=== PATIENT | female | born 1985 | race Caucasian/White ===

== ENCOUNTER 2017-02-03 19:00 | Emergency (ER) | payer SELFPAY ==
[~2017-02-03] VITALS: Ht 182.9 cm; Wt 46.3 kg
[~2017-02-03 19:00] MED LIST: BC PILL PO; HYDR1CAP2 PO; HYDR1TAB66 PO; MDR10T PO; ONDAN4ODT PO; ORTHOTRICYCLINE PO; PNT40TEC PO; [UNRECOGNIZED DRUG - OTHER]
--- OUTSIDE RECORDS SUMMARY | 2017-02-03 19:06 | XMS REPORT | Continuity of Care Document ---
Author Author [facility] Organization [facility] Address Unknown Phone Unavailable Allergies Active Description Code Type Severity Reaction Onset Reported/Identified Relationship to Patient Clinical Status Yes codeine Drug Allergy N/A N/A 11/14/2009 Yes Percocet Drug Allergy N/A N/A 11/14/2009 Yes Vicodin Drug Allergy N/A N/A 11/14/2009 Yes ranitidine Drug Allergy N/A N/A 11/18/2009 Yes Penicillins Drug Allergy N/A N/A 11/25/2009 Medications Problems Date Dx Coded Attending Type Code Diagnosis Diagnosed By 11/14/2009 789.00 ABDOMINAL PAIN UNSPECIFIED SITE 11/14/2009 DECLAN SELLERS APRN 789.00 ABDOMINAL PAIN UNSPECIFIED SITE 11/14/2009 YANDY SUTTON DO 789.00 ABDOMINAL PAIN UNSPECIFIED SITE 11/25/2009 620.2 OTHER AND UNSPECIFIED OVARIAN CYST 11/25/2009 625.9 UNSPECIFIED SYMPTOM ASSOCIATED WITH FEMALE GENITAL ORGANS 11/25/2009 626.2 EXCESSIVE OR FREQUENT MENSTRUATION 11/25/2009 DECLAN SELLERS APRN R 620.2 OTHER AND UNSPECIFIED OVARIAN CYST 11/25/2009 DECLAN SELLERS APRN R 625.9 UNSPECIFIED SYMPTOM ASSOCIATED WITH FEMALE GENITAL ORGANS 11/25/2009 DECLAN SELLERS APRN R 626.2 EXCESSIVE OR FREQUENT MENSTRUATION 11/25/2009 YANDY SUTTON DO 620.2 OTHER AND UNSPECIFIED OVARIAN CYST 11/25/2009 YANDY SUTTON DO K 625.9 UNSPECIFIED SYMPTOM ASSOCIATED WITH FEMALE GENITAL ORGANS 11/25/2009 YANDY SUTTON DO 626.2 EXCESSIVE OR FREQUENT MENSTRUATION 12/09/2009 V72.31 NAIL MAKING MACHINE TENDER EXAM, ROUTINE 12/09/2009 DECLAN SELLERS APRN 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 MAKING MACHINE TENDER EXAM, ROUTINE 12/09/2009 YANDY SUTTON DO V72.31 NAIL MAKING MACHINE TENDER EXAM, ROUTINE 03/12/2011 379.93 REDNESS OR DISCHARGE OF EYE 03/12/2011 DECLAN SELLERS APRN R 379.93 REDNESS OR DISCHARGE OF EYE 03/12/2011 YANDY SUTTON DO K 379.93 REDNESS OR DISCHARGE OF EYE 06/01/2011 789.06 ABDOMINAL PAIN EPIGASTRIC 06/01/2011 DECLAN SELLERS APRN R 789.06 ABDOMINAL PAIN EPIGASTRIC 06/01/2011 YANDY SUTTON DO K 789.06 ABDOMINAL PAIN EPIGASTRIC 06/12/2011 271.3 INTESTINAL DISACCHARIDASE DEFICIENCIES AND DISACCHARIDE MALABSORPTION 06/12/2011 558.9 OTHER AND UNSPECIFIED NONINFECTIOUS GASTROENTERITIS AND COLITIS 06/12/2011 DECLAN SELLERS APRN R 271.3 INTESTINAL DISACCHARIDASE DEFICIENCIES AND DISACCHARIDE MALABSORPTION 06/12/2011 DECLAN SELLERS APRN R 558.9 OTHER AND UNSPECIFIED NONINFECTIOUS GASTROENTERITIS AND COLITIS 06/12/2011 YANDY SUTTON DO K 271.3 INTESTINAL DISACCHARIDASE DEFICIENCIES AND DISACCHARIDE MALABSORPTION 06/12/2011 YANDY SUTTON DO 558.9 OTHER AND UNSPECIFIED NONINFECTIOUS GASTROENTERITIS AND COLITIS 08/24/2012 263.9 UNSPECIFIED PROTEIN-CALORIE MALNUTRITION 08/24/2012 530.81 GERD 08/24/2012 DECLAN SELLERS APRN R 263.9 UNSPECIFIED PROTEIN-CALORIE MALNUTRITION 08/24/2012 DECLAN SELLERS APRN R 530.81 GERD 08/24/2012 YANDY SUTTON DO K 263.9 UNSPECIFIED PROTEIN-CALORIE MALNUTRITION 08/24/2012 YANDY SUTTON DO K 530.81 GERD 09/26/2012 DECLAN SELLERS APRN R 783.21 LOSS OF WEIGHT 09/26/2012 YANDY SUTTON DO K 783.21 LOSS OF WEIGHT 03/09/2013 DECLAN SELLERS APRN R 305.1 TOBACCO ABUSE 03/09/2013 DECLAN SELLERS APRN R 786.2 COUGH 03/09/2013 YANDY SUTTON DO K 305.1 TOBACCO ABUSE 03/09/2013 YANDY SUTTON DO K 786.2 COUGH 03/27/2013 YANDY SUTTON DO 491.20 OBSTRUCTIVE CHRONIC BRONCHITIS WITHOUT EXACERBATION 03/27/2013 YANDY SUTTON DO 491.21 OBSTRUCTIVE CHRONIC BRONCHITIS WITH (ACUTE) EXACERBATION 03/27/2013 YANDY SUTTON DO V65.42 COUNSELING - SMOKING CESSATION Procedures Code [place] [address] HIDA SCAN 2012 Jorge Luis Hammonds 08/27/2012 Results Encounters ACCT No. Visit Date/Time Discharge Status Pt. Type Provider Facility Loc./Unit Complaint [id number] 09/15/2012 09:03:00 2012 23:59:59 CLS Outpatient [id number] 09/06/2012 09:57:00 2012 23:59:59 CLS Outpatient [id number] 03/27/2013 13:06:00 03/27/2013 23: 59:59 CLS Outpatient YANDY SUTTON DO [id number] 03/09/2013 12:31:00 03/09/2013 23: 59:59 CLS Outpatient DECLAN SELLERS APRN [id number] 08/24/2012 16:01:00 Document Registration
[2017-02-03 19:21] LABS: BASOPHILS # (AUTO) 0.1 10^3/uL (0.0-0.1); BASOPHILS % (AUTO) 0 % (0-10); EOSINOPHILS # (AUTO) 0.2 10^3/uL (0.0-0.3); EOSINOPHILS % (AUTO) 1 % (0-10); LYMPHOCYTES # (AUTO) 3.3 X 10^3 (1.0-4.0); LYMPHOCYTES % (AUTO) 13 % (12-44); MEAN CORPUSCULAR HEMOGLOBIN 33 PG (25-34); MEAN CORPUSCULAR HGB CONC 34 G/DL (32-36); MEAN CORPUSCULAR VOLUME 98 FL (80-99); MEAN PLATELET VOLUME 10.2 FL (7.4-10.4); MONOCYTES # (AUTO) 1.6 X 10^3 (0.0-1.0); MONOCYTES % (AUTO) 6 % (0-12); NEUTROPHILS # (AUTO) 19.7 X 10^3 (1.8-7.8); NEUTROPHILS % (AUTO) 79 % (42-75); PLATELET COUNT 460 10^3/uL (130-400); RED CELL DISTRIBUTION WIDTH 12.4 % (10.0-14.5); WHITE BLOOD COUNT 24.9 10^3/uL (4.3-11.0)
--- NOTE | 2017-02-03 19:32 | Diagnostic Imaging Report ---
EXAMINATION: PA and lateral chest at 0737 PM INDICATION: Cough and shortness of breath The heart size is within normal limits and stable when compared to 05/30/2011. The lungs are generally clear. There is no evidence for pneumonia or for a pleural effusion. The perihilar markings are somewhat prominent but no different than on the prior exam. The mediastinum is not widened. The osseous structures are intact. IMPRESSION: There is no evidence for an acute cardiopulmonary abnormality. Dictated by: Dictated on workstation # [id number]
[2017-02-03] MEDS ORDERED: RT-ALBUINH IH (19:33)
[2017-02-03 19:37] LABS: BAND NEUTROPHILS 9 %; BASOPHILS % (MANUAL) 0 %; EOSINOPHILS % (MANUAL) 1 %; LYMPHOCYTES % (MANUAL) 50 %; NEUTROPHILS % (MANUAL) 66 %
[2017-02-03 19:40] LABS: ALANINE AMINOTRANSFERASE 9 U/L (0-55); ALBUMIN 4.5 GM/DL (3.2-4.5); ANION GAP 13 MMOL/L (5-14); ASPARTATE AMINO TRANSFERASE 17 U/L (5-34); BILIRUBIN,TOTAL 0.5 MG/DL (0.1-1.0); BLOOD UREA NITROGEN 5 MG/DL (7-18); CALCIUM 10.2 MG/DL (8.5-10.1); CARBON DIOXIDE 23 MMOL/L (21-32); CHLORIDE 102 MMOL/L (98-107); GLUCOSE 89 MG/DL (70-105); SODIUM 138 MMOL/L (135-145); TOTAL PROTEIN 8.1 GM/DL (6.4-8.2); hs C REACTIVE PROTEIN 3.24 MG/DL (0.00-0.50)
--- NOTE | 2017-02-03 19:52 | ED Cough/URI ---
General Chief Complaint: Cough/Cold/Flu Symptoms Stated Complaint: FLU LIKE SYMPTOMS Nursing Triage Note: PATIENT BEGAN EXPERIENCING COLD LIKE SYMPTOMS A WEEK AGO. SYMPTOMS HAVE INCREASED AND SHE HAS BEGUN TO COUGH AND BE SOA WITH RIB PAIN. PATIENT DENIES HAVING A FEVER. History of Present Illness Time seen by provider: 19:05 Initial Comments 31-year-old female, arrives via EMS for cough and flulike symptoms for one week. She reports rib pain, from coughing. She is on albuterol for asthma, she's been using it 2 puffs every 4 hours. She had Tylenol approximately one hour prior to arriving to the emergency department. Timing/Duration: getting worse Severity/Quality: productive cough (minimal yellow phlegm) Prior Episodes/Possible Cause: no prior episodes Associated Symptoms: cough, nasal congestion Allergies and Home Medications Allergies Coded Allergies: acetaminophen (Unverified Allergy, Unknown, 02/03/17) hydrocodone (Unverified Allergy, Unknown, 02/03/17) oxycodone (Unverified Allergy, Unknown, 02/03/17) Home Medications Albuterol Sulfate 1 Puff Puff, 2 PUFF IH Q2H, (Reported) 1 PUFF = 90 MCG Amoxicillin/Potassium Clav 1 Each Tablet, 1 EACH PO BID, #14 Ref 0 Prescribed by: SAULO GORMAN on 02/03/172101 Constitutional: no symptoms reported, see HPI EENTM: see HPI, nose congestion Respiratory: see HPI, cough Gastrointestinal: no symptoms reported, see HPI All Other Systems Reviewed Negative Unless Noted: Yes Past Xgfuone-Gafbkd-Bcecft Hx Patient Social History Alcohol Use: Denies Use Recreational Drug Use: No Smoking Status: Current Everyday Smoker Type Used: Cigarettes Recent Foreign Travel: No Contact w/Someone Who Travel: No Recent Infectious Disease Expo: No Recent Hopitalizations: No Physical Abuse: No Sexual Abuse: No Mistreated: No Fear: No Seasonal Allergies Seasonal Allergies: Yes Surgeries History of Surgeries: Yes Surgeries: Hysterectomy Respiratory History of Respiratory Disorde: Yes Respiratory Disorders: Asthma Cardiovascular History of Cardiac Disorders: No Neurological History of Neurological Disord: No Reproductive System : No Hx Reproductive Disorders: Yes (ENDOMETRIOSIS/OVARIAN CYST) Sexually Transmitted Disease: No LIFE SCIENTISTS History: Hysterectomy Genitourinary History of Genitourinary Disor: No Gastrointestinal History of Gastrointestinal Di: No Musculoskeletal History of Musculoskeletal Dis: No Endocrine History of Endocrine Disorders: No HEENT History of HEENT Disorders: No Cancer History of Cancer: No Psychosocial History of Psychiatric Problem: No Suicide Risk Score: 0 Integumentary History of Skin or Integumenta: No Blood Transfusions History of Blood Disorders: No Reviewed Nursing Assessment Reviewed/Agree w Nursing PMH: Yes Physical Exam Vital Signs Vital Sign - Last 12Hours 02/03/17 19:10 Temp 98.1 Pulse 81 Resp 20 B/P (MAP) 126/81 (96) Pulse Ox 100 O2 Delivery Room Air Capillary Refill : Less Than 3 Seconds General Appearance: WD/WN, no apparent distress Eyes: Bilateral Eye Normal Inspection, Bilateral Eye PERRL, Bilateral Eye EOMI HEENT: normal ENT inspection, TMs normal, pharynx normal, other (trace frontal sinus tenderness) Neck: non-tender, full range of motion, supple, No lymphadenopathy (R), No lymphadenopathy (L) Respiratory: chest non-tender, lungs clear, normal breath sounds, no respiratory distress, no accessory muscle use, other (CVAT with deep breaths and coughing.) Cardiovascular: normal peripheral pulses, regular rate, rhythm, no murmur Gastrointestinal: normal bowel sounds, non tender, soft Neurologic/Psychiatric: no motor/sensory deficits, alert, normal mood/affect, oriented x 3 Skin: normal color, warm/dry, No rash, other (skin turgor and capillary refill less than 2 seconds) Progress/Results/Core Measures Suspected Sepsis Recent Fever Within 48 Hours: No Infection Criteria Present: Suspected New Infection New/Unexplained Altered Menta: No Sepsis Screen: No Definite Risk Sepsis Diagnosis: SIRS Temperature:98.1 Pulse: 81 Respiratory Rate: 20 Laboratory Tests 02/03/17 19:05: White Blood Count 24.9H Blood Pressure 126 /81 Mean: 96 Laboratory Tests 02/03/17 19:05: Creatinine 0.68, Platelet Count 460H, Total Bilirubin 0.5 Results/Orders Lab Results Laboratory Tests Test 02/03/17 19:05 02/03/17 19:56 Range/Units White Blood Count 24.9 H 4.3-11.0 10^3/uL Red Blood Count 4.60 4.35-5.85 10^6/uL Hemoglobin 15.2 11.5-16.0 G/DL Hematocrit 45 35-52 % Mean Corpuscular Volume 98 80-99 FL Mean Corpuscular Hemoglobin 33 25-34 PG Mean Corpuscular Hemoglobin Concent 34 32-36 G/DL Red Cell Distribution Width 12.4 10.0-14.5 % Platelet Count 460 H 130-400 10^3/uL Mean Platelet Volume 10.2 7.4-10.4 FL Neutrophils (%) (Auto) 79 H 42-75 % Lymphocytes (%) (Auto) 13 12-44 % Monocytes (%) (Auto) 6 0-12 % Eosinophils (%) (Auto) 1 0-10 % Basophils (%) (Auto) 0 0-10 % Neutrophils # (Auto) 19.7 H 1.8-7.8 X 10^3 Lymphocytes # (Auto) 3.3 1.0-4.0 X 10^3 Monocytes # (Auto) 1.6 H 0.0-1.0 X 10^3 Eosinophils # (Auto) 0.2 0.0-0.3 10^3/uL Basophils # (Auto) 0.1 0.0-0.1 10^3/uL Neutrophils % (Manual) 66 % Lymphocytes % (Manual) 50 % Monocytes % (Manual) 4 % Eosinophils % (Manual) 1 % Basophils % (Manual) 0 % Band Neutrophils 9 % Blood Morphology Comment NORMAL Sodium Level 138 135-145 MMOL/L Potassium Level 4.0 3.6-5.0 MMOL/L Chloride Level 102 98-107 MMOL/L Carbon Dioxide Level 23 21-32 MMOL/L Anion Gap 13 5-14 MMOL/L Blood Urea Nitrogen 5 L 7-18 MG/DL Creatinine 0.68 0.60-1.30 MG/DL Estimat Glomerular Filtration Rate > 60 BUN/Creatinine Ratio 7 Glucose Level 89 70-105 MG/DL Calcium Level 10.2 H 8.5-10.1 MG/DL Total Bilirubin 0.5 0.1-1.0 MG/DL Aspartate Amino Transf (AST/SGOT) 17 5-34 U/L Alanine Aminotransferase (ALT/SGPT) 9 0-55 U/L Alkaline Phosphatase 105 40-136 U/L C-Reactive Protein High Sensitivity 3.24 H 0.00-0.50 MG/DL Total Protein 8.1 6.4-8.2 GM/DL Albumin 4.5 3.2-4.5 GM/DL Urine Color YELLOW Urine Clarity CLEAR Urine pH 5 5-9 Urine Specific [place] 1.015 L 1.016-1.022 Urine Protein NEGATIVE NEGATIVE Urine Glucose (UA) NEGATIVE NEGATIVE Urine Ketones 1+ H NEGATIVE Urine Nitrite NEGATIVE NEGATIVE Urine Bilirubin NEGATIVE NEGATIVE Urine Urobilinogen NORMAL NORMAL MG/DL Urine Leukocyte Esterase NEGATIVE NEGATIVE Urine RBC (Auto) NEGATIVE NEGATIVE Urine RBC NONE /HPF Urine WBC RARE /HPF Urine Squamous Epithelial Cells 2-5 /HPF Urine Crystals NONE /LPF Urine Bacteria FEW H /HPF Urine Casts NONE /LPF Urine Mucus SMALL H /LPF Urine Culture Indicated NO Micro Results Microbiology 02/03/17 Influenza Types A,B Antigen (FLIP) - Final, Complete My Orders Orders - SAULO GORMAN Cbc With Automated Diff (02/03/17 19:11) Comprehensive Metabolic Panel (02/03/17 19:11) Hs C Reactive Protein (02/03/17 19:11) Influenza A And B Antigens (02/03/17 19:11) Chest Pa/Lat (2 View) (02/03/17 19:11) Manual Differential (02/03/17 19:05) Ua Culture If Indicated (02/03/17 19:53) Sputum Culture (02/03/17 19:56) Guaifenesin Tablet (Mucinex Tablet) (02/03/17 20:45) Amoxicillin/Clavulanate Tablet (Augmenti (02/03/17 20:38) Medications Given in ED Current Medications Medications Dose Ordered Sig/Liberty Route Start Time Stop Time Status Last Admin Dose Admin Guaifenesin 600 mg ONCE ONCE PO 02/03/17 20:45 02/03/17 20:46 DC 02/03/17 20:45 600 MG Vital Signs/I&O Vital Sign - Last 12Hours 02/03/17 02/03/17 19:10 21:23 Temp 98.1 98.1 Pulse 81 86 Resp 20 20 B/P (MAP) 126/81 (96) Pulse Ox 100 98 O2 Delivery Room Air Room Air Capillary Refill : Less Than 3 Seconds Blood Pressure Mean: 96 Progress Note : Time: 19:05 Progress Note Initial evaluation completed, recommended influenza swab, chest x-ray, CBC, sputum culture, UA, CMP. Normal saline 1 L infusing per IV. 1944 white blood cell count 24.9, chest x-ray negative for acute processes. Maintained her labs within normal limits. Mucinex 600 mg and Augmentin 875 mg orally. 2030 discharge planning reviewed with the patient, return precautions discussed. All questions answered. Diagnostic Imaging Diagonstic Imaging: Xray Plain Films/CT/US/NM/MRI: chest Comments NAME: [facility] REC#: [id number] PT STATUS: REG ER : 1985 PHYSICIAN: SAULO GORMAN ADMIT DATE: 02/03/17/ER Signed Date of Exam: 02/03/17 CHEST PA/LAT (2 VIEW) EXAMINATION: PA and lateral chest at 0737 PM INDICATION: Cough and shortness of breath The heart size is within normal limits and stable when compared to 05/30/2011. The lungs are generally clear. There is no evidence for pneumonia or for a pleural effusion. The perihilar markings are somewhat prominent but no different than on the prior exam. The mediastinum is not widened. The osseous structures are intact. IMPRESSION: There is no evidence for an acute cardiopulmonary abnormality. Dictated by: Dictated on workstation # [id number] Dict: 02/03/171926 Trans: 02/03/171931 Interpreted by: KWAME SHAIKH MD Electronically signed by: KWAME SHAIKH MD 02/03/171931 Reviewed: Reviewed by Me Departure Impression Impression: Primary Impression: Cough Additional Impressions: Upper respiratory infection Qualified Codes: J06.9 - Acute upper respiratory infection, unspecified Pleurisy Disposition: 01 HOME, SELF-CARE Condition: Improved Departure-Patient Inst. Decision time for Depature: 20:30 Referrals: SANDRA SMALL (PCP) Primary Care Physician Patient Instructions: Cough, Adult (DC), Acute Bronchitis, Adult (DC) Add. Discharge Instructions: Increase water intake, 16 oz bottle every 2 hours while awake. Muccinex 1 tablet twice daily with full glass of water. Take Medication as Prescribed: Augmentin. Continue to use your Albuterol inhaler 2 puffs every 4 hours. Follow-up with your primary care provider in 2-3 days if symptoms are not improving. You may take Tylenol 625 mg alternating with ibuprofen 600 mg every 4 hours for pain or fever. Running coolmist vaporizer in her room and sleeping. Return to emergency department for shortness of breath, difficulty breathing, fever greater than 101 not relieved with Tylenol or ibuprofen, or new problems. All discharge instructions reviewed with patient and/or family. Voiced understanding. Scripts Amoxicillin/Potassium Clav (Augmentin 875-125 Tablet) 1 Each Tablet 1 EACH PO BID, #14 TAB 0 Refills Prov: SAULO GORMAN 02/03/17 SAULO GORMAN Feb 03, 2017 19:52
[2017-02-03 20:06] LABS: BILIRUBIN,URINE NEGATIVE (NEGATIVE); KETONES,URINE 1+ (NEGATIVE); LEUKOCYTE ESTERASE ,URINE NEGATIVE (NEGATIVE); NITRITE,URINE NEGATIVE (NEGATIVE); PH,URINE 5 (5-9); PROTEIN,URINE NEGATIVE (NEGATIVE); UROBILINOGEN,URINE NORMAL (NORMAL)
[2017-02-03 20:15] LABS: WBC,URINE RARE /HPF
[2017-02-03 20:20] LABS: BUN/CREATININE RATIO 7; CREATININE SERUM 0.68 MG/DL (0.60-1.30); GFR ESTIMATED > 60
[2017-02-03] MEDS ORDERED: AUGMENTIN 875 MG TAB (AMOXICILLIN/CLAVULANATE) PO STA (20:38)
[2017-02-03] MEDS ORDERED: guaiFENesin (MUCINEX) 600 MG TAB PO ONE (20:45)
[2017-02-03] MEDS ORDERED: AMOX-358 PO (21:02)
[2017-02-03 21:23] VITALS: BP 110/70
== END 2017-02-03 21:23 | disposition home or self-care (01) ==
LOC: EDUNIT# 19:00 → ER 19:02
DX: J06.9 Acute upper respiratory infection, unspecified (principal); R07.81 Pleurodynia; J45.909 Unspecified asthma, uncomplicated; F17.210 Nicotine dependence, cigarettes, uncomplicated; Z90.710 Acquired absence of both cervix and uterus
CPT/HCPCS: 36415; 71020; 80053; 81000; 85007; 85027; 86141; 87070; 87077; 87205; 87804; 99283

== ENCOUNTER 2022-04-11 00:54 | Emergency (ER) | payer SELFPAY ==
[~2022-04-11] VITALS: Ht 182.9 cm; Wt 45.8 kg
[~2022-04-11 00:54] MED LIST changes: +ALBU8.5H6 IH; +AMOX-358 PO
[2022-04-11 01:03] VITALS: BP 152/90
[2022-04-11 01:25] LABS: BILIRUBIN,URINE NEGATIVE (NEGATIVE); CLARITY,URINE CLEAR; COLOR,URINE YELLOW; GLUCOSE, URINE (UA) NEGATIVE (NEGATIVE); KETONES,URINE NEGATIVE (NEGATIVE); LEUKOCYTE ESTERASE ,URINE NEGATIVE (NEGATIVE); NITRITE,URINE NEGATIVE (NEGATIVE); PH,URINE 5.5 (5-9); PROTEIN,URINE NEGATIVE (NEGATIVE)
[2022-04-11 01:32] LABS: BACTERIA,URINE NEGATIVE /HPF
[2022-04-11 01:39] LABS: AMPHETAMINE SCREEN, URINE NEGATIVE (NEGATIVE); BARBITURATE SCREEN URINE NEGATIVE (NEGATIVE); BENZODIAZEPINES SCREEN URINE NEGATIVE (NEGATIVE); CANNABINOID SCREEN, URINE NEGATIVE (NEGATIVE); COCAINE SCREEN URINE NEGATIVE (NEGATIVE); METHADONE STAT NEGATIVE (NEGATIVE); OPIATE SCREEN URINE NEGATIVE (NEGATIVE); OXYCODONE STAT NEGATIVE (NEGATIVE); PROPOXYPHENE STAT NEGATIVE (NEGATIVE); TRICYCLIC ANTIDEPRESSANTS SCRE NEGATIVE (NEGATIVE)
[2022-04-11] MEDS ORDERED: ONDA8TAB13 PO (01:43)
--- NOTE | 2022-04-11 01:43 | ED General ---
General Chief Complaint: General Problems/Pain Stated Complaint: FEET ARE TINGLING/NAUSEA Nursing Triage Note: c/o nausea x1 day, no vomitting/pain. c/o intermittant bilateral feet tingling. feels "weird" Source of Information: Patient History of Present Illness Date Seen by Provider: Apr 11, 2022 Time Seen by Provider: 01:10 Initial Comments PT ARRIVES VIA POV FROM HOME STATES SHE FELT A LITTLE NAUSEATED YESTERDAY, BUT HAS HAD WORSENING OF NAUSEA SINCE MIDNIGHT TONIGHT WHEN SHE WENT TO BED NO VOMITING NO ABDOMINAL PAIN OR CRAMPING NO URINARY SYMPTOMS NO FEVER HAD NORMAL BM TODAY SHE HAS CONTINUED TO EAT AND DRINK VERY WELL AND NORMALLY ALL DAY LONG SHE HAS HAD AT LEAST 3 BOTTLES OF WATER, AND A FEW CUPS OF COFFEE TODAY SHE HAS EATEN 3 TIMES TODAY, AND LAST ATE AT 1800--HAMBURGER AND TATER TOTS. NO ONE ELSE IS ILL NO SUSPICIOUS FOODS NO HISTORY OF SIMILAR SHE DENIES ANY HISTORY OF ANY GI PROBLEMS. SHE IS NOT ON ANY DAILY MEDICATIONS SHE HAS AN INHALER FOR PRN USE FOR ASTHMA, BUT HAS NOT USED FOR AWHILE. SHE HAS HAD PRIOR HYSTERECTOMY / LEFT SALPINGO-OOPHORECTOMY IN 2010. NO OTHER ABDOMINAL SURGERIES SHE SMOKES 1/2 PPD, RARE ALCOHOL USE AND TRIED MARIJUANA ONE TIME, NO OTHER DRUG USE. PCP: SUNNY[facility]RYAN Allergies and Home Medications Allergies Coded Allergies: acetaminophen (Unverified Allergy, Unknown, 02/03/17) hydrocodone (Unverified Allergy, Unknown, 02/03/17) oxycodone (Unverified Allergy, Unknown, 02/03/17) Patient Home Medication List Home Medication List Reviewed: Yes Albuterol Sulfate (Ventolin Hfa) 1 Puff Puff, 2 PUFF IH Q2H, (Reported) Entered as Reported by: NIURKA HOLLY on 02/03/171932 Ondansetron (Ondansetron Odt) 8 Mg Tab.rapdis, 8 MG PO Q6H Prescribed by: JESSIE PHELPS on 04/11/22 0143 Discontinued Medications Amoxicillin/Potassium Clav (Augmentin 875-125 Tablet) 1 Each Tablet, 1 EACH PO BID Discontinued Reason: No Longer Taking Prescribed by: SAULO GORMAN on 02/03/172101 Last Action: Discontinued Review of Systems Review of Systems Constitutional: no symptoms reported; No chills, No diaphoresis, No dizziness, No fever, No malaise, No weakness EENTM: no symptoms reported; No ear pain, No nose congestion, No throat pain Respiratory: no symptoms reported; No cough Cardiovascular: no symptoms reported; No chest pain Gastrointestinal: see HPI; No abdominal pain, No constipation, No diarrhea, No dysphagia, No heartburn, No loss of appetite, No melena; nausea; No vomiting Genitourinary: no symptoms reported Musculoskeletal: no symptoms reported Skin: no symptoms reported Psychiatric/Neurological: No Symptoms Reported Hematologic/Lymphatic: No Symptoms Reported Immunological/Allergic: no symptoms reported Past Orpfyjx-Btfzza-Yhzxaa Hx Patient Social History Tobacco Use?: Yes Tobacco type used: Cigarettes Smoking Status: Current Everyday Smoker Substance use?: No Alcohol Use?: Yes Alcohol Frequency: Once in a while Pt feels they are or have been: No Immunizations Up To Date First/Initial COVID19 Vaccinat: na Seasonal Allergies Seasonal Allergies: Yes Past Medical History Surgery/Hospitalization HX: hysterectomy, asthma Surgeries: Yes (HYSTERECTOMY / LEFT SALPINGO-OOPHORECTOMY) Hysterectomy, Oophorectomy Respiratory: Yes Asthma Cardiac: No Neurological: No Reproductive Disorders: Yes (ENDOMETRIOSIS/OVARIAN CYST; CPP; HYST/LSO) Female Reproductive Disorders: Menstrual Problems, Endometriosis, Ovarian Cyst [employer] History: Hysterectomy Sexually Transmitted Disease: No Genitourinary: No Gastrointestinal: No Musculoskeletal: No Endocrine: No HEENT: No Cancer: No Psychosocial: No Integumentary: No Blood Disorders: No Family Medical History SOCIAL HISTORY: -SMOKES 1/2 PPD -RARE ETOH USE -NO DRUG USE, OTHER THAN "TRIED MARIJUANA ONE TIME" Physical Exam Vital Signs Vital Signs - First Documented 04/11/22 01:03 Temp 36.4 Pulse 80 Resp 16 B/P (MAP) 152/90 (110) Pulse Ox 99 O2 Delivery Room Air Capillary Refill : Less Than 3 Seconds Height, Weight, BMI Height: 6'0" Weight: 102lbs. oz. 46.749362al; 13.00 BMI Method:Stated General Appearance: No Apparent Distress, WD/WN, Thin (VERY THIN); No Other (TALKS NORMALLY, DOES NOT APPEAR ILL OR TO BE IN ANY DISCOMFORT OR DISTRESS WHATSOEVER. ) HEENT: PERRL/EOMI, TMs Normal, Pharynx Normal, Moist Mucous Membranes, Other (EDENTULOUS) Neck: Normal Inspection Respiratory: Normal Breath Sounds, No Accessory Muscle Use, No Respiratory Distress Cardiovascular: Regular Rate, Rhythm, No Edema, No JVD, No Murmur, Normal Peripheral Pulses Gastrointestinal: Normal Bowel Sounds, No Organomegaly, No Pulsatile Mass, Non Tender, Soft Back: Normal Inspection, No CVA Tenderness Extremity: Normal Capillary Refill, Normal Inspection, Normal Range of Motion, Non Tender, No Calf Tenderness, No Pedal Edema Neurologic/Psychiatric: Alert, Oriented x3, No Motor/Sensory Deficits, Normal Mood/Affect, media services specialist II-XII Norm as Tested Skin: Normal Color, Warm/Dry; No Rash Progress/Results/Core Measures Suspected Sepsis SIRS Temperature: Pulse: 80 Respiratory Rate: 16 Blood Pressure 152 /90 Mean: 110 Results/Orders Lab Results Laboratory Tests Test 04/11/22 01:20 Range/Units Urine Color YELLOW Urine Clarity CLEAR Urine pH 5.5 5-9 Urine Specific [place] 1.015 L 1.016-1.022 Urine Protein NEGATIVE NEGATIVE Urine Glucose (UA) NEGATIVE NEGATIVE Urine Ketones NEGATIVE NEGATIVE Urine Nitrite NEGATIVE NEGATIVE Urine Bilirubin NEGATIVE NEGATIVE Urine Urobilinogen 0.2 < = 1.0 MG/DL Urine Leukocyte Esterase NEGATIVE NEGATIVE Urine RBC (Auto) TRACE-I H NEGATIVE Urine RBC NONE /HPF Urine WBC NONE /HPF Urine Crystals NONE /LPF Urine Bacteria NEGATIVE /HPF Urine Casts NONE /LPF Urine Mucus NEGATIVE /LPF Urine Culture Indicated NO Urine Opiates Screen NEGATIVE NEGATIVE Urine Oxycodone Screen NEGATIVE NEGATIVE Urine Methadone Screen NEGATIVE NEGATIVE Urine Propoxyphene Screen NEGATIVE NEGATIVE Urine Barbiturates Screen NEGATIVE NEGATIVE Ur Tricyclic Antidepressants Screen NEGATIVE NEGATIVE Urine Phencyclidine Screen NEGATIVE NEGATIVE Urine Amphetamines Screen NEGATIVE NEGATIVE Urine Methamphetamines Screen NEGATIVE NEGATIVE Urine Benzodiazepines Screen NEGATIVE NEGATIVE Urine Cocaine Screen NEGATIVE NEGATIVE Urine Cannabinoids Screen NEGATIVE NEGATIVE My Orders Orders - JESSIE PHELPS DO Monitor-Rhythm Ecg Trace Only (04/11/22 01:15) Drug Screen Stat (Urine) (04/11/22 01:15) Ua Culture If Indicated (04/11/22 01:15) Ondansetron Oral Dissolve Tab (Zofran (04/11/22 01:45) Medications Given in ED Current Medications Medications Dose Ordered Sig/Liberty Route Start Time Stop Time Status Last Admin Dose Admin Ondansetron HCl 8 mg ONCE ONCE PO 04/11/22 01:45 04/11/22 01:46 04/11/22 01:44 8 MG Vital Signs/I&O 04/11/22 01:03 Temp 36.4 Pulse 80 Resp 16 B/P (MAP) 152/90 (110) Pulse Ox 99 O2 Delivery Room Air Capillary Refill : Less Than 3 Seconds Blood Pressure Mean: 110 Progress Note : Progress Note GIVEN ZOFRAN FOR NAUSEA PT HAS NO OTHER SYMPTOMS OTHER THAN NAUSEA, EXAM IS NORMAL, ABDOMEN IS SOFT AND NON-TENDER URINE IS CLEAR, NO SIGNS OF DEHYDRATION, NO BILIRUBINEMA, NO SIGNS OF INFECTION HER VITALS ARE STABLE DO NOT FEEL THAT ANY OTHER WORK UP IS NECESSARY AT THIS TIME, PT'S ONLY COMPLAINT IS NAUSEA, AND SHE HAS BEEN EATING AND DRINKING COMPLETELY NORMALLY ALL DAY, INCLUDING HIGH FAT/FRIED FOODS. DISCUSSED ANTICIPATED COURSE, DIET, MEDICATIONS, NEED FOR FOLLOW UP AND RETURN PRECAUTIONS DISCUSSED WITH PT AND MALE IN ROOM. REVIEWED PRIOR RECORDS, WITH FEW ER VISITS--LAST VISIT IN 2016, AND ADMIT RECORD FOR SURGERY IN 2010 INCLUDING H&P, TESTS/PROCEDURES, DISCHARGE SUMMARY. Departure Impression Primary Impression: Nausea alone Disposition: HOME, SELF-CARE Condition: Stable Departure-Patient Inst. Decision time for Depature: 01:42 Referrals: [facility] (PCP/Family) Primary Care Physician Patient Instructions: Nausea and Vomiting, Adult (DC) Add. Discharge Instructions: CLEAR LIQUIDS--WATER, BROTH, JELLO, GATORADE BRATS DIET--BANANAS, RICE, APPLESAUCE, TOAST, SALTINES FOLLOW UP WITH [facility] IN 2-3 DAYS IF NO BETTER, RETURN TO ER IF YOUR SYMPTOMS WORSEN All discharge instructions reviewed with patient and/or family. Voiced understanding. Scripts Ondansetron (Ondansetron Odt) 8 Mg Tab.rapdis 8 MG PO Q6H, #10 TAB Prov: JESSIE PHELPS DO 04/11/22 JESSIE PHELPS DO Apr 11, 2022 01:43
[2022-04-11] MEDS ORDERED: ONDANSETRON 4 MG (ZOFRAN) ORAL DISSOLVE TAB PO ONE (01:45)
== END 2022-04-11 01:47 | disposition home or self-care (01) ==
LOC: EDUNIT# 00:54 → ER 00:56
DX: R11.0 Nausea (principal); F17.210 Nicotine dependence, cigarettes, uncomplicated; Z28.310 Unvaccinated for COVID-19
CPT/HCPCS: 80306; 81000; 99283